=== PATIENT | female | born 1980 | race American Indian/Alaskan Native ===

== ENCOUNTER 2021-02-27 10:08 | Emergency (ER) | payer BC ==
--- NOTE | 2021-02-27 11:02 | Emergency Department Report ---
ED ENT HPI - General Chief complaint: Sore Throat Stated complaint: CHEST PAIN/SORE THROAT Time Seen by Provider: 02/27/21 10:55 Source: patient Mode of arrival: Ambulatory Limitations: No Limitations - History of Present Illness Initial comments: 40-year-old female with a past medical history of hypertension presents to the ER today with complaints of sore throat and swollen area underneath her chin. Patient states that she has been having issues with sore throat for about 2 weeks. She has been trying home remedies as well as leftover antibiotics from about a year ago without much relief of her symptoms. She states that yesterday she noticed the swollen area underneath neck which is also sore on palpation. She reports pain with swallowing but otherwise no trismus or drooling. She reports cough but she states that it is secondary to sensation in her throat and she states that when she coughs it causes her chest to hurt. She denies any s hortness of breath or wheezing. She denies any fever or chills. She denies any rhinorrhea nasal congestion. She denies any ill contacts or recent travel. MD complaint: sore throat, other (swollen area underneath chin ) -: week(s) - Related Data Previous Rx's Medication Instructions Recorded Last Taken Type Clindamycin [Clindamycin CAP] 300 mg PO Q8H #30 cap 02/27/21 Unknown Rx Ibuprofen [Motrin] 800 mg PO Q8HR PRN #30 tablet 02/27/21 Unknown Rx Allergies Allergy/AdvReac Type Severity Reaction Status Date / Time No Known Allergies Allergy Unverified 02/27/21 10:23 ED Dental HPI - General Chief complaint: Sore Throat Stated complaint: CHEST PAIN/SORE THROAT Time Seen by Provider: 02/27/21 10:55 Source: patient Mode of arrival: Ambulatory Limitations: No Limitations - Related Data Previous Rx's Medication Instructions Recorded Last Taken Type Clindamycin [Clindamycin CAP] 300 mg PO Q8H #30 cap 02/27/21 Unknown Rx Ibuprofen [Motrin] 800 mg PO Q8HR PRN #30 tablet 02/27/21 Unknown Rx Allergies Allergy/AdvReac Type Severity Reaction Status Date / Time No Known Allergies Allergy Unverified 02/27/21 10:23 ED Review of Systems ROS: Stated complaint: CHEST PAIN/SORE THROAT Other details as noted in HPI Comment: All other systems reviewed and negative Constitutional: denies: chills, fever Eyes: denies: eye pain, eye discharge, vision change ENT: throat pain, other (Submandibular swelling). denies: ear pain, dental pain, hearing loss, epistaxis, congestion Respiratory: cough. denies: shortness of breath, SOB with exertion, SOB at rest, stridor, wheezing Cardiovascular: denies: chest pain, palpitations, dyspnea on exertion, edema, syncope, paroxysmal nocturnal dyspnea Gastrointestinal: denies: abdominal pain, nausea, vomiting, diarrhea, con stipation, hematemesis, melena, hematochezia Genitourinary: denies: urgency, dysuria, frequency, hematuria, discharge, abnormal menses, dyspareunia Musculoskeletal: denies: back pain, joint swelling, arthralgia Skin: denies: rash, lesions, change in color, change in hair/nails, pruritus Neurological: denies: headache, weakness, numbness, paresthesias, confusion, abnormal gait, vertigo Psychiatric: denies: anxiety, depression, auditory hallucinations, visual hallucinations, homicidal thoughts, suicidal thoughts Hematological/Lymphatic: denies: easy bleeding, easy bruising ED Past Medical Hx - Past Medical History Previous Medical History?: Yes Hx Hypertension: Yes - Surgical History Past Surgical History?: No - Medications Home Medications: Home Medications Medication Instructions Recorded Confirmed Last Taken Type Clindamycin [Clindamycin CAP] 300 mg PO Q8H #30 cap 02/27/21 Unknown Rx Ibuprofen [Motrin] 800 mg PO Q8HR PRN #30 tablet 02/27/21 Unknown Rx ED Physical Exam - General Limitations: No Limitations General appearance: alert, in no apparent distress, obese - Head Head exam: Present: atraumatic, normocephalic, normal inspection - Eye Eye exam: Present: normal appearance, PERRL, EOMI Pupils: Present: normal accommodation - ENT ENT exam: Present: mucous membranes moist - Expanded ENT Exam Expanded Mouth exam: Present: normal external inspection. Absent: drooling, trismus, muffled voice, tongue normal, tongue elevation, laceration Throat exam: Positive: tonsillar erythema, tonsillomegaly. Negative: tonsillar exudate, R peritonsillar mass, L peritonsillar mass - Neck Neck exam: Present: normal inspection, lymphadenopathy (Single, mobile submandibular lymph node which is mildly tender to palpate without any associated cellulitis). Absent: meningismus, full ROM - Respiratory Respiratory exam: Present: normal lung sounds bilaterally. Absent: respiratory distress, wheezes, rales, rhonchi - Cardiovascular Cardiovascular Exam: Present: regular rate, normal rhythm, normal heart sounds - GI/Abdominal GI/Abdominal exam: Present: soft. Absent: distended, tenderness, guarding - Back Exam Back exam: Present: normal inspection - Neurological Exam Neurological exam: Present: alert, oriented X3, CN II-XII intact, normal gait - Psychiatric Psychiatric exam: Present: normal affect, normal mood - Skin Skin exam: Present: intact ED Course Vital Signs 02/27/21 02/27/21 10:25 11:37 Temperature 98.1 F Pulse Rate 73 Respiratory 18 Rate Blood Pressure 164/108 164/102 [Right] O2 Sat by Pulse 99 Oximetry ED Medical Decision Making - Medical Decision Making The patient is resting comfortably, is alert and in no distress. She has a normal mental status and is neurologically intact. She appears well and is able to tolerate p.o. fluids and solids by mouth and there is no significant dehydration. She is not in any respiratory distress and no signs of systemic toxicity. The history, exam, and current condition do not demonstrate an infectious process such as meningitis, severe pneumonia, peritonsillar abscess, retropharyngeal deep space neck abscess, epiglottitis, sepsis or other serious bacterial infection requiring testing, treatment, consultation or admission at this time. Patient blood pressure noted to be elevated at triage but she just took her blood pressure medication about an hour prior to coming in and she currently has no symptoms related to hypertension. The suspected diagnosis and treatment plan with patient. Expressed understanding of instructions and agree with plan. The patient's condition is stable and appropriate for discharge. The patient will pursue further outpatient evaluation with the primary care physician or other designated. Critical care attestation.: If time is entered above; I have spent that time in minutes in the direct care of this critically ill patient, excluding procedure time. ED Disposition Clinical Impression: Tonsillitis, Submandibular lymphadenitis Disposition: - TO HOME OR SELFCARE Is pt being admited?: No Does the pt Need Aspirin: No Condition: Stable Instructions: Tonsillitis, Lymphadenopathy Additional Instructions: Take the clindamycin as prescribed and also take the Motrin. I recommend that you follow-up with ENT if your symptoms persist after completing antibiotics. Return to the ER if your symptoms changes or worsens in any way. Prescriptions: Clindamycin [Clindamycin CAP] 300 mg PO Q8H #30 cap Ibuprofen [Motrin] 800 mg PO Q8HR PRN #30 tablet PRN Reason: Pain Referrals: JESSICA CLAY MD [Staff Physician] - 7-10 days (ENT (hearing aid dispenser)) Time of Disposition: 11:10
[2021-02-27 11:38] VITALS: BP 164/102
== END 2021-02-27 11:39 | disposition home or self-care (01) ==
LOC: ED 10:08
DX: L04.0 Acute lymphadenitis of face, head and neck (principal); J03.90 Acute tonsillitis, unspecified; I10 Essential (primary) hypertension; Z79.1 Long term (current) use of non-steroidal anti-inflammatories (NSAID); Z79.2 Long term (current) use of antibiotics
CPT/HCPCS: 99282